=== PATIENT | male | born 1990 | race Caucasian/White ===

== ENCOUNTER 2016-09-20 19:31 | Emergency (ER) | payer BC, OTHER ==
[~2016-09-20] VITALS: Ht 190.5 cm; Wt 117.9 kg
--- NOTE | 2016-09-20 20:08 | ED Cough/URI ---
General Chief Complaint: Cough/Cold/Flu Symptoms Stated Complaint: SORE THROAT Nursing Triage Note: PT REPORTS COUGH/CONGESTION X 1 WEEK WITH SORE THROAT THAT BEGAN YESTERDAY. Source: patient Exam Limitations: no limitations History of Present Illness Time seen by provider: 20:07 Initial Comments To ER with reports of a cough for about one to 2 months. The cough is nonproductive. For the course of the past week he's also had a sore throat and nasal congestion as well as pain behind his ears. No measured fevers, he is a nonsmoker. Timing/Duration: week, getting worse Severity/Quality: dry cough Associated Symptoms: cough, nasal congestion, nasal drainage, sore throat Allergies and Home Medications Allergies Coded Allergies: No Known Drug Allergies (Unverified , 09/20/16) Home Medications Azithromycin 250 Mg Tablet #4 250 MG PO DAILY Prescribed by: GENET MONTAÑO on 09/20/162044 Constitutional: see HPI EENTM: see HPI Respiratory: see HPI Cardiovascular: no symptoms reported Genitourinary: no symptoms reported Musculoskeletal: no symptoms reported Skin: no symptoms reported Psychiatric/Neurological: No Symptoms Reported Hematologic/Lymphatic: No Symptoms Reported Immunological/Allergic: no symptoms reported Past Wmmfgmn-Qabgoj-Ugxgmp Hx Patient Social History Alcohol Use: Occasionally Uses Recreational Drug Use: No Smoking Status: Never a Smoker 2nd Hand Smoke Exposure: No Recent Foreign Travel: No Contact w/Someone Who Travel: No Recent Infectious Disease Expo: No Physical Exam Vital Signs Vital Sign - Last 12Hours Capillary Refill : Less Than 3 Seconds General Appearance: WD/WN no apparent distress Eyes: Bilateral Eye EOMI, Bilateral Eye Normal Inspection, Bilateral Eye PERRL HEENT: PERRL/EOMI TMs normal pharyngeal erythema Neck: non-tender full range of motionNo lymphadenopathy (R), No lymphadenopathy (L) Respiratory: normal breath sounds no respiratory distress no accessory muscle use Cardiovascular: regular rate, rhythm no murmur Gastrointestinal: normal bowel sounds non tender soft Neurologic/Psychiatric: alert normal mood/affect oriented x 3 Skin: normal color warm/dry Progress/Results/Core Measures Results/Orders Lab Results Laboratory Tests Test 09/20/16 20:15 Range/Units Group A Streptococcus Screen NEGATIVE NEGATIVE Micro Results Microbiology 09/20/16 Influenza Types A,B Antigen (JACK) - Final, Complete My Orders Orders-GENET MONTAÑO [employer] Chest Pa/Lat (2 View) (09/20/16 20:05) Influenza A And B Antigens (09/20/16 20:05) Rapid Strep A Screen (09/20/16 20:05) Dexamethasone Pf Injection (Decadron Pf (09/20/16 21:00) Azithromycin Tablet (Zithromax Tablet) (09/21/16 09:00) Medications Given in ED Current Medications Medications Dose Ordered Sig/Katharina Route Start Time Stop Time Status Last Admin Dose Admin Dexamethasone Sodium Phosphate 10 mg ONCE ONCE IM 09/20/16 21:00 09/20/16 21:00 DC 09/20/16 20:57 10 MG Vital Signs/I&O Vital Sign - Last 12Hours 09/20/16 09/20/16 19:49 19:49 Temp 98.4 Pulse 86 Resp 18 B/P 186/88 Pulse Ox 100 O2 Delivery Room Air Room Air Blood Pressure Mean: 120 Departure Impression Impression: Primary Impression: Bronchitis Disposition: 01 HOME, SELF-CARE Condition: Stable Departure-Patient Inst. Decision time for Depature: 20:45 Referrals: ANTHONY NEAL MD (PCP/Family) Primary Care Physician Patient Instructions: Acute Bronchitis, Adult (DC) Add. Discharge Instructions: 1. Medication as directed 2. Return to ER for any concerns 3. Follow-up with next week All discharge instructions reviewed with patient and/or family. Voiced understanding. Scripts Azithromycin 250 Mg [id number] Mg PO DAILY #4 TAB Prov:GENET MONTAÑO APRN 09/20/16 GENET MONTAÑO APRN Sep 20, 2016 20:08
--- NOTE | 2016-09-20 20:27 | Diagnostic Imaging Report ---
EXAMINATION: PA and lateral chest INDICATION: Shortness of breath. Cough. FINDINGS: No focal pulmonary infiltrate is demonstrated. There is no alveolar consolidation. There is no effusion. There is no pneumothorax. Heart size and mediastinal contours are appropriate. Pulmonary vascularity appears within normal limits. No acute osseous abnormality is demonstrated. IMPRESSION: No radiographic evidence of an acute cardiopulmonary process. Dictated by: Dictated on workstation # [id number]
[2016-09-20] MEDS ORDERED: AZIT250T5 PO (20:45)
[2016-09-20 20:57] VITALS: BP 186/88
[2016-09-20] MEDS ORDERED: DEXAMETHASONE PF 10 MG/ML (DECADRON) VIAL IM ONE (21:00)
[2016-09-21] MEDS ORDERED: AZITHROMYCIN 250 MG TAB (ZITHROMAX) PO SCH (09:00)
== END 2016-09-20 20:57 | disposition home or self-care (01) ==
LOC: EDUNIT# 19:31 → ER 19:34
DX: J40 Bronchitis, not specified as acute or chronic (principal)
CPT/HCPCS: 71020; 87430; 87804; 96372; 99282

== ENCOUNTER 2020-06-22 05:35 | Outpatient (RCR) | payer BC ==
[~2020-06-22] VITALS: Ht 190 cm; Wt 125.0 kg
[~2020-06-22 05:35] MED LIST: AZIT250T12 PO; PANT40TA2 PO
== END 2020-06-22 11:48 | disposition home or self-care (01) ==
LOC: PREOP 05:35
PROVIDERS: ATTEND Surgery
DX: Z01.812 Encounter for preprocedural laboratory examination (principal); K21.9 Gastro-esophageal reflux disease without esophagitis; U07.1 COVID-19
CPT/HCPCS: 87635

== ENCOUNTER 2020-09-05 15:18 | Outpatient (CLI) | payer BC | END 2020-09-05 15:45 | disposition home or self-care (01) | LOC: SLEEP 15:18 | PROVIDERS: ATTEND Nurse Practitioner Family | DX: G47.10 Hypersomnia, unspecified (principal) | CPT/HCPCS: G0399 ==